=== PATIENT | female | born 1980 | race Caucasian/White ===

== ENCOUNTER → 2019-11-09 | Outpatient (CLI) | payer SELFPAY ==
[~2019-11-09] MED LIST: IOHEXOL 300 MG/ML 50 ML (OMNIPAQUE 300) VIAL IV ONE
--- NOTE | 2019-11-09 13:10 | Diagnostic Imaging Report ---
INDICATION: Fluoroscopic guidance FINDINGS: 23 images were obtained. 36 seconds of fluoroscopy was utilized. 15 mL of Omnipaque 300 was injected into the endometrial cavity. Both fallopian tubes are visualized. There appears to be free spill into the left adnexa. No definitive spills appreciated on the right. Endometrial configuration grossly unremarkable. IMPRESSION: Fluoroscopic-guided HSG as described. Please correlate with the formal HSG report. Dictated by: Dictated on workstation # [id number]
== END ==
LOC: RAD 11:09
PROVIDERS: ATTEND Obstetrics & Gynecology
DX: Z30.09 Encounter for other general counseling and advice on contraception (principal); N97.9 Female infertility, unspecified
CPT/HCPCS: 58340; 74740; 84703

== ENCOUNTER 2020-07-21 09:40 | Emergency (ER) | payer OTHER ==
[~2020-07-21] VITALS: Ht 154.9 cm; Wt 75.9 kg
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
[2020-07-21] MEDS ORDERED: HYDROcodone/APAP 10 MG/325 MG (LORTAB) TAB PO ONE (11:00)
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
--- NOTE | 2020-07-21 11:43 | Diagnostic Imaging Report ---
INDICATION: Swelling, pain FINDINGS: No fracture, dislocation, bony destruction, foreign body or gas. IMPRESSION: Unremarkable 2 view humerus. Dictated by: Dictated on workstation # [id number]
[2020-07-21] MEDS ORDERED: ACHD5005 PO (11:45)
[2020-07-21 12:08] VITALS: BP 118/76
== END 2020-07-21 12:08 | disposition home or self-care (01) ==
LOC: EDUNIT# 09:40 → ER FS 09:42
DX: S40.022A Contusion of left upper arm, initial encounter (principal); Z32.02 Encounter for pregnancy test, result negative; V40.5XXA Car driver injured in collision with pedestrian or animal in traffic accident, initial encounter; Y92.410 Unspecified street and highway as the place of occurrence of the external cause
CPT/HCPCS: 71045; 73030; 73060; 73080; 73110

== ENCOUNTER 2023-02-24 19:06 | Emergency (ER) | payer SELFPAY ==
[~2023-02-24] VITALS: Ht 155 cm; Wt 60.8 kg
[~2023-02-24 19:06] MED LIST changes: +ACHD5005 PO; -IOHEXOL 300 MG/ML 50 ML (OMNIPAQUE 300) VIAL IV ONE
[2023-02-24 19:11] VITALS: BP 119/61
--- NOTE | 2023-02-24 19:15 | ED EENT ---
History of Present Illness General Stated Complaint: RIGHT EYE INJ Source: patient Exam Limitations: no limitations History of Present Illness Date Seen by Provider: February 24, 2023 Time Seen by Provider: 19:08 Initial Comments 42-year-old female presents to the emergency department today for left eye injury. She was playing baseball with her son and was struck in the left eye when she missed the catch. She states she has blurred vision and swelling. She also has a laceration above her left eye. She states her last tetanus shot was within the last 5 years. All other systems reviewed and negative except documented per HPI. Voice recognition software was used to help create this chart Allergies and Home Medications Allergies Coded Allergies: No Allergy Information Available (Unverified , 11/09/19) Patient Home Medication List Home Medication List Reviewed: Yes Hydrocodone/Acetaminophen (Hydrocodone-Acetamin 5-325 mg) 1 Each Tablet, 1 EACH PO Q4H Prescribed by: DHARMESH CLEANING on 07/21/20 7945 Review of Systems Review of Systems Constitutional: see HPI Past Rspfwhu-Btboys-Ezgqsg Hx Patient Social History Tobacco Use?: No Use of E-Cig and/or Vaping dev: No Substance use?: No Alcohol Use?: No Seasonal Allergies Seasonal Allergies: No Past Medical History Surgeries: No Respiratory: No Cardiac: No Neurological: No Genitourinary: No Gastrointestinal: No Musculoskeletal: No Endocrine: No HEENT: No Cancer: No Psychosocial: No Integumentary: No Blood Disorders: No Physical Exam Vital Signs Vital Signs - First Documented 02/24/23 19:11 Temp 37.5 Pulse 77 Resp 18 B/P (MAP) 119/61 (80) Pulse Ox 100 O2 Delivery Room Air Height, Weight, BMI Height: '" Weight: lbs. oz. kg; 31.00 BMI Method: General Appearance: WD/WN, no apparent distress Eyes: right eye normal inspection, right eye PERRL, right eye EOMI; left eye other (Swelling the left eye. Extraocular movements seem to be intact. Full equally round and reactive to light and accommodation. There is a laceration above the left eyebrow, approximately 3 cm in length.) Nose: normal inspection Mouth/Throat: normal mouth inspection, pharynx normal Cardiovascular: regular rate, rhythm, no murmur Respiratory: chest non-tender, normal breath sounds, no respiratory distress Procedures/Interventions Wound Location: Face Wound Length (cm): 3.0 Wound's Depth, Shape: sub Q Wound Explored: clean Anesthesia: 1% Lidocaine Suture: Chromic Suture Size: 5-0 Number of Sutures: 8 Layer Closure?: 1 Number Deep Layer Sutures: 0 Progress/Results/Core Measures Results/Orders My Orders Orders - SHARONDAALFA Gene DO Ct Maxillofacial Wo (02/24/23 19:14) Lidocaine 1% Inj 20 Ml (Xylocaine 1% Inj (02/24/23 19:45) Vital Signs/I&O 02/24/23 19:11 Temp 37.5 Pulse 77 Resp 18 B/P (MAP) 119/61 (80) Pulse Ox 100 O2 Delivery Room Air Departure Communication (Admissions) Patient is hemodynamically stable. No evidence for entrapment. There is abnormal for fracture with hematoma in the maxillary sinus. Advised not to blow her nose for 2 weeks and to take antibiotics as prescribed. Given strict return precaution for double vision. Given ENT follow-up. Laceration was repaired with stitches. Used fast-absorbing gut so no need for removal. Advised on wound care care of stitches. Impression Primary Impression: Periorbital hematoma Qualified Codes: H05.232 - Hemorrhage of left orbit Additional Impressions: Orbital floor fracture Qualified Codes: S02.32XA - Fracture of orbital floor, left side, initial encounter for closed fracture Facial laceration Qualified Codes: S01.81XA - Laceration without foreign body of other part of head, initial encounter Disposition: 01 HOME, SELF-CARE Condition: Stable Admissions Decision to Admit Reason: Admit from ER (General) Departure-Patient Inst. Referrals: GENEVA VERA [facility] (PCP/Family) Primary Care Physician Patient Instructions: Laceration Repair With Stitches ED Add. Discharge Instructions: The stitches will dissolve on their own over the course of 7 to 10 days. Do not use ointments or salves on them until after the stitches are gone. Afterwards I recommend you use vitamin E oil and sunscreen to help with scarring. You do have an orbital floor fracture. Do not blow your nose for the next 14 days. Take the antibiotics as prescribed until they are gone. Alternate ibuprofen and Tylenol as needed for pain. Return to the emergency department for any double vision or if your symptoms change in any way concerning to you. I have given you the name of an mechanical research engineer and you could call to schedule a follow-up appointment so they can see your fracture through to healing. ALFA MCDONOUGH DO February 24, 2023 19:15
[2023-02-24] MEDS ORDERED: LIDOCAINE 1% INJ 20 ML VIAL INJ ONE (19:45)
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
[2023-02-24] MEDS ORDERED: CLIN150C20 PO (20:07)
== END 2023-02-24 20:12 | disposition home or self-care (01) ==
LOC: EDUNIT# 19:06 → ER FS 19:08
DX: S02.32XA Fracture of orbital floor, left side, initial encounter for closed fracture (principal); S01.112A Laceration without foreign body of left eyelid and periocular area, initial encounter; Z28.310 Unvaccinated for COVID-19; W21.03XA Struck by baseball, initial encounter; Y92.320 Baseball field as the place of occurrence of the external cause; Y93.64 Activity, baseball
CPT/HCPCS: 12013; 70486